=== PATIENT | male | born 1995 | race Caucasian/White ===

== ENCOUNTER 2024-08-06 19:03 | Emergency (ER) | payer OTHER ==
[~2024-08-06] VITALS: Ht 170.2 cm; Wt 74.0 kg
[2024-08-06 19:16] VITALS: O2SAT 99
[2024-08-06 20:00] VITALS: TEMP 37; O2SAT 99
[2024-08-06] MEDS ORDERED: NAPR-1129 MT (20:06)
[2024-08-06] MEDS: DEXAMETHASONE 10 MG/ML VIAL PO ONE (20:22)
[2024-08-06 20:28] VITALS: BP 98/56; PULSE 64; RESP 18
[2024-08-06] MEDS: KETOROLAC 30MG/ML VIAL IM ONE (20:28)
== END 2024-08-06 20:40 | disposition home or self-care (01) ==
LOC: ER 19:03
DX: G89.11 Acute pain due to trauma (principal); M54.50 Low back pain, unspecified; V43.52XA Car driver injured in collision with other type car in traffic accident, initial encounter; Y93.89 Activity, other specified; Y92.410 Unspecified street and highway as the place of occurrence of the external cause; Y99.8 Other external cause status
CPT/HCPCS: 99283; 96372; J1885; J1100